=== PATIENT | female | born 1975 | race Caucasian/White ===

== ENCOUNTER 2019-04-22 20:57 | Emergency (ER) | payer SELFPAY ==
--- NOTE | 2019-04-22 22:53 | ULT ---
PELVIC ULTRASOUND 04/22/19 COMPARISON: None. HISTORY: 43-year-old female with positive test, assess for ectopic . TECHNIQUE: Multiplanar ye scale sonographic imaging of the pelvis obtained with transabdominal and endovaginal imaging. The ovaries are assessed with color flow and spectral analysis. FINDINGS: No intrauterine gestational sac is noted. Endometrial thickness is approximately 4 mm, within normal limits. No free pelvic fluid is evident. The ovaries demonstrate normal blood flow. Nabothian cysts are noted. The uterus measures 8.7 x 4.8 x 4.0 cm. Right ovary measures 2.1 x 1.6 x 2.5 cm and left ovary measures 2.3 x 2.1 x 2.3 cm. No ovarian or adnexal mass lesion. IMPRESSION: Unremarkable pelvic ultrasound. If the patient is in fact , findings may be on the basis of n ormal early , spontaneous , or sonographically occult ectopic . Thus, quant itative beta HCG at this time and in 48 hours is advised. POS: OFF
== END 2019-04-22 23:15 | disposition home or self-care (01) ==
LOC: ERS 20:57
DX: R10.13 Epigastric pain (principal); R10.11 Right upper quadrant pain
CPT/HCPCS: 76856